=== PATIENT | male | born 1985 | race Caucasian/White ===

== ENCOUNTER 2020-03-09 20:17 | Emergency (ER) | payer SELFPAY ==
[~2020-03-09] VITALS: Ht 185.4 cm; Wt 77.1 kg
[2020-03-09 20:21] VITALS: BP 125/78
--- NOTE | 2020-03-09 20:21 | NUR ---
ED Nurse Note: pt walked into ED from home c/o RUQ abdominal pain 02/02. Pt reports previous history of pancreatitis and is withdraweing from suboxone since wednesday. Pt appears clammy and pale, and rests in position to relief pain. Pt is AAOx4, breathing even and unlabored. Bradycardic 56-59 on the monitor, other vitals stable as documented.
[2020-03-09] MEDS ORDERED: Lidocaine 2% Visc 15ml soln ORAL ONE (20:45)
[2020-03-09] MEDS ORDERED: Dicyclomine HCl 10mg/5ml oral soln ORAL ONE (20:45)
[2020-03-09] MEDS ORDERED: Mylanta II UD 30ml ORAL ONE (20:45)
--- NOTE | 2020-03-09 20:47 | Emergency Room Report ---
History of Present Illness General Chief Complaint: Abdominal Pain Source: Patient Present Illness HPI Disclaimer: Please note that this report is being documented using [employer] technology. This can lead to erroneous entry secondary to incorrect interpretation by the dictating instrument. HPI: 34-year-old male presents for evaluation of abdominal pain. Symptoms onset approximately 1 hour ago. Patient states he ate a [employer] several hours ago after which she does scribes sharp and stabbing epigastric cramping. Does not radiate. Reports nausea but no vomiting. Denies diarrhea, fever, chills, chest pain, shortness of breath, cough or URI symptoms. Prior history of pancreatitis. Drink alcohol earlier in the day. Complaining of sweats and chills and states he is withdrawing from Suboxone. Patient is visiting from [place] and states he forgot to bring his Suboxone. He is scheduled to fly home in the morning. Denies other drug use. Denies history of abdominal surgery. 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 EOMI. Cardiovascular: RRR. S1 and S2 normal. No murmur appreciated Resp: Normal work of breathing. No cough, wheezing or crackles appreciated Abdomen: Abdomen is soft, nondistended. Tenderness in the epigastrium, left upper quadrant, right upper quadrant. Negative Cook's. No tenderness to lower quadrants. Skin: Intact. No abrasions, laceration or rash over the exposed skin MSK: Normal tone and bulk. Moving all extremities. No obvious deformity. Neuro: Awake and alert. Mentating appropriately. Medical Decision Making Diagnostic Impression: Primary Impression: Abdominal pain ER Course Is a 34-year-old male presenting for evaluation of abdominal pain and nausea. Differential includes not limited to gastritis, gastroenteritis, GERD, pancreatitis, cholecystitis, hepatitis, opiate withdrawal, dehydration among others. Patient exam is most consistent with either opiate withdrawal, gastritis or a viral syndrome. History of pancreatitis and alcohol use earlier today concerning as well. Labs show normal lipase, normal LFTs, renal function within normal limits and no evidence of white count or urinary tract infection. He felt better after receiving IV Benadryl, clonidine and IV fluids. Also received a GI cocktail which improved his symptoms. Do believe there is an element of his Suboxone withdrawal as he has been without Suboxone for 2 days. Will treat symptomatically as the patient has a flight in several hours to return to [place]. He can check back into his rehabilitation program there. No other signs of infection. He is otherwise well-appearing. Stable for outpatient follow-up. Instructed to return with new or worsening symptoms and to follow-up with PMD and Suboxone clinic once he returns home. Laboratory Tests Test 03/09/20 20:40 White Blood Count 13.2 K/UL (4.8-10.8) H Red Blood Count 4.32 M/UL (4.70-6.10) L Hemoglobin 14.0 G/DL (14.2-18.0) L Hematocrit 41.6 % (42.0-52.0) L Mean Corpuscular Volume 96 FL (80-99) Mean Corpuscular Hemoglobin 32.3 PG (27.0-31.0) H Mean Corpuscular Hemoglobin Concent 33.6 G/DL (32.0-36.0) Red Cell Distribution Width 11.7 % (11.6-14.8) Platelet Count 363 K/UL (150-450) Mean Platelet Volume 6.5 FL (6.5-10.1) Neutrophils (%) (Auto) 64.7 % (45.0-75.0) Lymphocytes (%) (Auto) 28.1 % (20.0-45.0) Monocytes (%) (Auto) 6.2 % (1.0-10.0) Eosinophils (%) (Auto) 0.4 % (0.0-3.0) Basophils (%) (Auto) 0.7 % (0.0-2.0) Sodium Level 141 MMOL/L (136-145) Potassium Level 3.3 MMOL/L (3.5-5.1) L Chloride Level 104 MMOL/L (98-107) Carbon Dioxide Level 29 MMOL/L (21-32) Anion Gap 8 mmol/L (5-15) Blood Urea Nitrogen 10 mg/dL (7-18) Creatinine 1.0 MG/DL (0.55-1.30) Estimated Glomerular Filtration Rate > 60 mL/min (>60) Glucose Level 121 MG/DL (74-106) H Calcium Level 8.5 MG/DL (8.5-10.1) Total Bilirubin 0.2 MG/DL (0.2-1.0) Aspartate Amino Transferase (AST) 138 U/L (15-37) H Alanine Aminotransferase (ALT) 80 U/L (12-78) H Alkaline Phosphatase 77 U/L (46-116) Total Protein 7.9 G/DL (6.4-8.2) Albumin 3.9 G/DL (3.4-5.0) Globulin 4.0 g/dL Albumin/Globulin Ratio 1.0 (1.0-2.7) Lipase 76 U/L (73-393) Serum Alcohol 38 mg/dL Last Vital Signs Date Time Temp Pulse Resp B/P (MAP) Pulse Ox O2 Delivery O2 Flow Rate FiO2 03/09/20 20:19 97.3 61 18 122/77 (92) 98 Room Air Disposition: HOME, SELF-CARE Condition: Improved Scripts Clonidine Hcl* (CATAPRES*) 0.1 Mg Tablet 0.1 MG ORAL EVERY 6 HOURS, #10 TAB Prov: Tanmay Nickerson MD 03/09/20 Loperamide Hcl (LOPERAMIDE) 2 Mg Capsule 2 MG PO BID, #20 CAP Prov: Tanmay Nickerson MD 03/09/20 Ondansetron Odt* (ZOFRAN ODT*) 4 Mg Tab.rapdis 4 MG BC EVERY 6 HOURS PRN for Nausea & Vomiting, #10 TAB 0 Refills Prov: Tanmay Nickerson MD 03/09/20 Famotidine* (Pepcid 20mg tablet*) 20 Mg Tablet 20 MG ORAL DAILY for Gerd, #30 TAB 0 Refills Prov: Tanmay Nickerson MD 03/09/20 Tanmay Nickerson MD Mar 09, 2020 20:47
[2020-03-09] MEDS ORDERED: DiphenhydrAMINE 50mg/ml Inj IVP ONE (21:00)
[2020-03-09 21:07] LABS: BASOPHILS % (AUTO) 0.7 % (0.0-2.0); EOSINOPHILS % (AUTO) 0.4 % (0.0-3.0); HEMATOCRIT 41.6 % (42.0-52.0); LYMPHOCYTES % (AUTO) 28.1 % (20.0-45.0); MEAN CORPUSCULAR VOLUME 96 FL (80-99); MONOCYTES % (AUTO) 6.2 % (1.0-10.0); NEUTROPHILS % (AUTO) 64.7 % (45.0-75.0); PLATELET COUNT 363 K/UL (150-450); RED BLOOD COUNT 4.32 M/UL (4.70-6.10); RED CELL DISTRIBUTION WIDTH 11.7 % (11.6-14.8); WHITE BLOOD COUNT 13.2 K/UL (4.8-10.8)
[2020-03-09 21:08] LABS: ANION GAP 8 mmol/L (5-15); BLOOD UREA NITROGEN 10 mg/dL (7-18); CALCIUM 8.5 MG/DL (8.5-10.1); CARBON DIOXIDE 29 MMOL/L (21-32); CHLORIDE 104 MMOL/L (98-107); POTASSIUM 3.3 MMOL/L (3.5-5.1); SODIUM 141 MMOL/L (136-145)
[2020-03-09 21:12] LABS: ALANINE AMINOTRANSFERASE 80 U/L (12-78); ALBUMIN 3.9 G/DL (3.4-5.0); ALKALINE PHOSPHATASE 77 U/L (46-116); ASPARTATE AMINO TRANSFERASE 138 U/L (15-37); BILIRUBIN,TOTAL 0.2 MG/DL (0.2-1.0)
[2020-03-09] MEDS ORDERED: LOPERAMIDE2 MG PO (21:49)
[2020-03-09] MEDS ORDERED: FAMOTIDINE20 MG ORAL (21:49)
[2020-03-09] MEDS ORDERED: CATAPRES0.1 MG ORAL (21:49)
[2020-03-09] MEDS ORDERED: ONDANSETRON ODT4 MG BC (21:49)
[2020-03-09 21:55] VITALS: BP 127/78
--- NOTE | 2020-03-09 21:55 | NUR ---
ER DISCHARGE NOTE: Patient is cleared to be discharged per ERMD, pt is aox4, on room air, with stable vital signs. pt was given dc instructins and paper prescriptions with instructions to f/u with PMD, pt was able to verbalize understanding, pt id band and iv site removed without complications. pt is able to ambulate with steady gait. pt took all belongings.
== END 2020-03-09 21:55 | disposition home or self-care (01) ==
LOC: EMR 20:59
DX: R10.13 Epigastric pain (principal); R10.12 Left upper quadrant pain; R10.11 Right upper quadrant pain; F19.10 Other psychoactive substance abuse, uncomplicated; Z88.0 Allergy status to penicillin; Z72.89 Other problems related to lifestyle
CPT/HCPCS: 36415; 80053; 83690; 85025; 96361; 96374; 96375; 99284; G0480; J1200; J2405; J7030; J7040; S0028